=== PATIENT | male | born 1970 | race Caucasian/White ===

== ENCOUNTER 2021-08-29 21:13 | Emergency (ER) | payer OTHER ==
[~2021-08-29] VITALS: Ht 177.8 cm; Wt 120.0 kg
[2021-08-29] MEDS ORDERED: BACTRIM DS TAB1 EACH PO (23:11)
== END 2021-08-29 23:39 | disposition home or self-care (01) ==
LOC: ED 21:13
DX: L60.0 Ingrowing nail (principal); Z88.0 Allergy status to penicillin
CPT/HCPCS: 99283; A9270